=== PATIENT | female | born 1965 | race Caucasian/White ===

== ENCOUNTER 2017-01-29 01:55 | Emergency (ER) | payer BC, OTHER ==
[~2017-01-29] VITALS: Wt 68.5 kg
[2017-01-29] MEDS ORDERED: LIDOCAINE/MYLANTA 40 ML BTL PO STA (04:12)
[2017-01-29] MEDS ORDERED: FAMOTIDINE 20 MG INJ IV STA (04:12)
[2017-01-29 05:04] LABS: ALANINE AMINOTRANSFERASE 55 IU/L (13-69); ALBUMIN 4.4 g/dl (3.3-4.9); ALBUMIN/GLOBULIN RATIO 1.46; ALKALINE PHOSPHATASE 70 IU/L (42-121); ANION GAP 13 (8-16); ASPARTATE AMINO TRANSFERASE 30 IU/L (15-46); BILIRUBIN,INDIRECT 0.9 mg/dl (0-1.1); BILIRUBIN,TOTAL 0.9 mg/dl (0.2-1.3); BLOOD UREA NITROGEN 16 mg/dl (7-20); CALCIUM 9.6 mg/dl (8.4-10.2); CARBON DIOXIDE 27 mmol/L (21-31); CHLORIDE 104 mmol/L (97-110); CREATININE 0.63 mg/dl (0.44-1.00); GLUCOSE 161 mg/dl (70-220); SODIUM 140 mmol/L (135-144); TOTAL PROTEIN 7.4 g/dl (6.1-8.1)
[2017-01-29 05:15] LABS: TROPONIN-I < 0.012 ng/ml (0.00-0.12)
--- NOTE | 2017-01-29 05:21 | RADRPT ---
PROCEDURE: XR Chest. CLINICAL INDICATION: Shortness of breath. TECHNIQUE: AP Portable chest. COMPARISON: No pertinent prior examinations were submitted for comparison. FINDINGS: The cardiomediastinal silhouette is normal. Some minimal linear opacity is noted at the left lung b ase, likely atelectasis. The osseous structures are unremarkable. IMPRESSION: Likely mild atelectasis at the left lung base. RPTAT: HIKT .Anjel Reed MD, MD Date Time Electronically viewed and signed by .Anjel Reed MD, on 01/29/2017 05:21 .T/
[2017-01-29 05:36] LABS: BASOPHILS % 0.3 % (0.0-2.0); EOSINOPHILS # 0.1 10^3/ul (0.0-0.5); EOSINOPHILS % 0.6 % (0.0-7.0); HEMATOCRIT 40.8 % (37.0-47.0); HEMOGLOBIN 14.2 g/dl (12.0-16.0); LYMPHOCYTES # 2.3 10^3/ul (0.8-2.9); LYMPHOCYTES % 26.2 % (15.0-51.0); MEAN CORPUSCULAR HEMOGLOBIN 30.7 pg (29.0-33.0); MEAN CORPUSCULAR HGB CONC 34.8 g/dl (32.0-37.0); MEAN CORPUSCULAR VOLUME 88.1 fl (82.0-101.0); MONOCYTE # 0.4 10^3/ul (0.3-0.9); NEUTROPHILS % 67.6 % (39.0-77.0); PLATELET COUNT 244 10^3/UL (140-415); RED BLOOD COUNT 4.63 10^6/ul (4.20-5.40); RED CELL DISTRIBUTION WIDTH 11.7 % (11.5-14.5); WHITE BLOOD COUNT 8.8 10^3/ul (4.8-10.8)
--- NOTE | 2017-01-29 05:36 | ERA ---
ER Documentation Chief Complaint Date/Time DATE: 01/29/17 TIME: 05:33 Chief Complaint SOB, CP and not feeling well. Epigastric pain HPI This is a 51-year-old female who presents to the emergency room with multiple complaints. She is somewhat anxious. She describes epigastric abdominal discomfort with mild, diffuse cramping abdominal pain that started after eating fried duck from a [place] restaurant. She describes a mild shortness of breath associated with this episode but now has complete resolution of her symptoms. She states that she was crying when this happened but now has no complaints. She does describe nausea but no significant vomiting, no diarrhea or constipation, no abdominal surgical history. She denies any chest pressure or exertional symptoms, no pleuritic pain recent travel or leg swelling. ROS All systems reviewed and are negative except as per history of present illness. Medications Home Meds Active Scripts Famotidine* (Pepcid*) 20 Mg Tablet, 20 MG PO BID for dyspepsia for 30 Days, TAB Prov:RADHA NESS MD 01/29/17 Reported Medications Atorvastatin Calcium (Atorvastatin Calcium) 10 Mg Tablet, 10 MG PO QHS, #30 TAB 01/29/17 Allergies Allergies: Coded Allergies: No Known Allergy (Unverified , 01/29/17) PMhx/Soc History of Surgery: Yes (hysterectomy) Hx Cardiac Disorders: Yes (cholesterol) Hx Alcohol Use: No Hx Substance Use: No Hx Tobacco Use: No Smoking Status: Never smoker FmHx Family History: No diabetes Physical Exam Vitals Vital Signs Date Time Temp Pulse Resp B/P Pulse Ox O2 Delivery O2 Flow Rate FiO2 01/29/17 02:03 98.0 75 22 181/89 97 Physical Exam General: Well developed, well nourished, no acute distress Head: Normocephalic, atraumatic. Eyes: Pupils equally reactive, EOM intact ENT: Moist mucous membranes Neck: Supple, no lymphadenopathy Respiratory: Lungs clear bilaterally, no distress Cardiovascular: RRR, no murmurs, rubs, or gallops Abdominal: Soft, non-tender, non-distended, no peritoneal signs, Negative Moya sign, no tenderness to McBurney's point : Deferred MSK: No edema, no unilateral swelling, 5/5 strength Neurologic: Alert and oriented, moving all extremities, normal speech, no focal weakness, no cerebellar signs Skin: No rash Psych: Normal mood Result Diagram: 01/29/1740901/29/17409 Results 24 hrs Laboratory Tests Test 01/29/17 04:10 White Blood Count 8.810^3/ul Red Blood Count 4.6310^6/ul Hemoglobin 14.2g/dl Hematocrit 40.8% Mean Corpuscular Volume 88.1fl Mean Corpuscular Hemoglobin 30.7pg Mean Corpuscular Hemoglobin Concent 34.8g/dl Red Cell Distribution Width 11.7% Platelet Count 50591^3/UL Mean Platelet Volume 10.0fl Neutrophils % 67.6% Lymphocytes % 26.2% Monocytes % 5.0% Eosinophils % 0.6% Basophils % 0.3% Nucleated Red Blood Cells % 0.0/100WBC Neutrophils # (Manual) 5.910^3/ul Lymphocytes # 2.310^3/ul Monocytes # 0.410^3/ul Eosinophils # 0.110^3/ul Basophils # 0.010^3/ul Nucleated Red Blood Cells # 0.010^3/ul Sodium Level 140mmol/L Potassium Level 4.0mmol/L Chloride Level 104mmol/L Carbon Dioxide Level 27mmol/L Anion Gap 13 Blood Urea Nitrogen 16mg/dl Creatinine 0.63mg/dl Glucose Level 161mg/dl Calcium Level 9.6mg/dl Total Bilirubin 0.9mg/dl Direct Bilirubin 0.00mg/dl Indirect Bilirubin 0.9mg/dl Aspartate Amino Transf (AST/SGOT) 30IU/L Alanine Aminotransferase (ALT/SGPT) 55IU/L Alkaline Phosphatase 70IU/L Troponin I < 0.012ng/ml Total Protein 7.4g/dl Albumin 4.4g/dl Globulin 3.00g/dl Albumin/Globulin Ratio 1.46 Lipase 128U/L Serum HCG, Qualitative NEGATIVE Current Medications Medications (Trade) Dose Ordered Sig/Shellie Route PRN Reason Start Time Stop Time Status Last Admin Dose Admin Famotidine (Pepcid Iv) 20 mg ONCE STAT IV 01/29/17 04:12 01/29/17 04:13 DC 01/29/17 04:22 Miscellaneous Medication (Gi Cocktail (2)) 40 ml ONCE STAT PO 01/29/17 04:12 01/29/17 04:13 DC 9/8/17 04:22 Procedures/MDM EKG, MONITORS, & DIAGNOSTIC IMAGING: EKG: I reviewed and interpreted a 12-lead EKG. Rhythm: Normal sinus rhythm Ectopy: None Intervals: No abnormalities ST segments: No elevations or depressions T waves: No contiguous inversions Chest x-ray: I reviewed and interpreted a 1 view of the chest Mediastinum: No enlargement Cardiac silhouette: No cardiomegaly Airspace: Clear lung mancini bilaterally without evidence of pneumothorax Bones: No evidence of fracture LAB INTERPRETATION: Negative troponin, normal LFTs and lipase MEDICAL DECISION MAKING: The patient presents with multiple complaints but appears to be very consistent with postprandial epigastric and abdominal cramping. The patient denies any migratory pain that would be concerning for dissection, no exertional symptoms that would be concerning for acute coronary syndrome. The patient's heart score is less than 3 with missed adverse cardiac event rate less than 1.9%. I believe this is very consistent with dyspepsia given postprandial symptoms after eating fried food. The patient now has complete resolution of symptoms. She is somewhat anxious which may be contributing to her presentation as well. She has an overall benign abdominal examination without signs or symptoms concerning for acute intra-abdominal process such as obstruction, hepatobiliary obstruction or acute appendicitis. No indication for CT imaging ER COURSE: The patient was given a GI cocktail with dramatic improvement of her symptoms. Repeat abdominal exam is benign. Her laboratory testing is otherwise unrevealing. No evidence of cardiac ischemia or hepatobiliary obstruction. At this time the patient is safe for discharge home. She was advised to avoid fried or fatty foods and follow-up with a primary care physician. I kept the patient and/or family informed of laboratory and diagnostic imaging results throughout the emergency room course. DISPOSITION PLAN: We discussed follow up with the patient's primary care doctor within 24 to 48 hours as needed. We also discussed return to the emergency room for worsening symptoms or worsening condition. Outpatient referral: [facility] as needed Discharge Medications: Pepcid Departure Diagnosis: Primary Impression: Epigastric abdominal pain Additional Impression: Dyspepsia Condition: Stable RADHA NESS MD Jan 29, 2017 05:36
[2017-01-29] MEDS ORDERED: ATOR10TA65 PO (05:38)
[2017-01-29] MEDS ORDERED: FAMO-96 PO (05:40)
[2017-01-29 05:55] VITALS: BP 134/87; PULSE 85; RESP 20
== END 2017-01-29 05:57 | disposition home or self-care (01) ==
LOC: E/R 01:55
DX: R10.13 Epigastric pain (principal)
CPT/HCPCS: 36415; 71010; 80053; 83690; 84484; 84703; 85025; 93005; 96374